=== PATIENT | female | born 2000 | race Caucasian/White ===

== ENCOUNTER 2020-10-31 14:43 | Emergency (ER) | payer OTHER ==
[~2020-10-31] VITALS: Ht 175.3 cm; Wt 54.0 kg
[2020-10-31] MEDS ORDERED: PEPCID AC20 MG PO (20:53)
[2020-10-31] MEDS ORDERED: CLEOCIN HCL300 MG PO (20:53)
== END 2020-10-31 21:24 | disposition home or self-care (01) ==
LOC: EMR PED 14:43 → ER 14:43 → EMR PED 17:58
DX: G89.18 Other acute postprocedural pain (principal); M79.645 Pain in left finger(s); M25.542 Pain in joints of left hand; M00.9 Pyogenic arthritis, unspecified; Z03.818 Encounter for observation for suspected exposure to other biological agents ruled out